=== PATIENT | female | born 1935 | race Caucasian/White ===

== ENCOUNTER 2017-01-19 08:21 | Outpatient (CLI) | payer MEDICARE, OTHER ==
--- NOTE | 2017-01-19 13:42 | CT ---
CT CHEST WITHOUT CONTRAST: Date: 01/19/17 HISTORY: Cough. I25.1, J40. COMPARISON: Chest x-ray from 2015. FINDINGS: There is a 2.0 x 6.0 mm nodule in the inferior lingula. There are a few tree-in-bud opacities within the right middle lobe peripherally. Calcified granuloma is present in the left upper lobe. There is a focal area of pleural thickening posterior right hemithorax with focal extrapleural fat w hich may be evidence from prior injury. Tracheobronchial tree is patent. Dense vascular calcifications of the coronary arteries. Prior media n sternotomy. There is a hypodensity in hepatic segment 8 with focal possible capsular retraction versus invaginat ion of the diaphragm, although measured fluid attenuation may be a cyst. This is the only comparison CT examination. There are a few Schmorl's nodes of the thoracolumbar junction. No displaced rib fra cture. Old left anterior 4th and 5th rib fracture. There is a healing posterior left 11th rib fracture of t he neck. IMPRESSION: 1. 6.0 mm nodule inferior lingula. In a high risk patient, follow-up at 6-[address] at 18-24 months is recommended. In a low risk patient, follow-up CT at 6-[address] at 18-24 months. 2. A few tree-in-bud opacities in the right middle lobe may be infectious or inflammatory versus as piration, series 3, image 36. 3. Hepatic hypodensity suggestive of a cyst. 4. Healing fracture left 11th posterior rib neck with multiple old left anterior rib fractures. POS: [facility]
== END 2017-01-19 08:22 | disposition home or self-care (01) ==
LOC: SCSCT 08:21
PROVIDERS: ATTEND Family Medicine
DX: I25.10 Atherosclerotic heart disease of native coronary artery without angina pectoris (principal); I10 Essential (primary) hypertension; J40 Bronchitis, not specified as acute or chronic; R05 Cough; J45.991 Cough variant asthma; S22.32XD Fracture of one rib, left side, subsequent encounter for fracture with routine healing
CPT/HCPCS: 71250

== ENCOUNTER 2018-08-13 10:13 | Outpatient (CLI) | payer MEDICARE, OTHER ==
--- NOTE | 2018-08-23 16:19 | MMO ---
Bilateral MAMMO Bilat Screen [facility]. CLINICAL HISTORY: Patient is 83 years old and is seen for screening. The patient has no family history of breast cancer. The patient has a history of uterine cancer at age 66. VIEWS: The views performed were: bilateral craniocaudal with tomosynthesis and bilateral mediolateral oblique with tomosynthesis. FILMS COMPARED: The present examination has been compared to prior imaging studies performed at [facility] [place] on 09/01/2014, 08/24/2015 and 08/22/2016. MAMMOGRAM FINDINGS: There are scattered fibroglandular densities. There are stable benign appearing calcifications seen in both breasts. There are no suspicious masses, suspicious calcifications, or new areas of architectural distortion. IMPRESSION: THERE IS NO MAMMOGRAPHIC EVIDENCE OF MALIGNANCY. A ROUTINE FOLLOW-UP MAMMOGRAM IN 1 YEAR IS RECOMMENDED. THE RESULTS OF THIS EXAM WERE SENT TO THE PATIENT. ACR BI-RADS Category 2 - Benign finding MAMMOGRAPHY NOTE: 1. A negative mammogram report should not delay a biopsy if a dominant of clinically suspicious mass is present. 2. Approximately 10% to 15% of breast cancers are not detected by mammography. 3. Adenosis and dense breasts may obscure an underlying neoplasm.
== END 2018-08-13 10:14 | disposition home or self-care (01) ==
LOC: BICMAMMO 10:13
PROVIDERS: ATTEND Family Medicine
DX: Z12.31 Encounter for screening mammogram for malignant neoplasm of breast (principal); Z85.42 Personal history of malignant neoplasm of other parts of uterus
CPT/HCPCS: 77063; 77067